=== PATIENT | male | born 1960 | race Asian ===

== ENCOUNTER 2017-06-11 15:26 | Emergency (ER) | payer OTHER ==
[~2017-06-11] VITALS: Ht 170.2 cm; Wt 98.9 kg
[2017-06-11 15:36] VITALS: Ht 170.2 cm; Wt 98.9 kg
[2017-06-11 16:51] LABS: PLATELET COUNT 314 x10^3mcL (130-400); RED CELL DISTRIBUTION WIDTH 13.8 % (11.5-14.5)
[2017-06-11 17:03] LABS: CALCIUM 9.1 mg/dL (8.5-10.1); CARBON DIOXIDE 21.2 mmol/L (21-32); CHLORIDE SERUM 104 mmol/L (98-107); CREATININE SERUM 1.7 mg/dL (0.7-1.3); GFR1 45 mL/min; GLUCOSE SERUM 222 mg/dL (74-106); POTASSIUM SERUM 4.2 mmol/L (3.5-5.1); SODIUM SERUM 139 mmol/L (136-145)
[2017-06-11 17:05] LABS: ALBUMIN 3.8 g/dL (3.4-5.0); ALKALINE PHOSPHATASE 78 U/L (46-116); ALT/SGPT 38 U/L (16-63); AST/SGOT 22 U/L (15-37); BILIRUBIN TOTAL 0.46 mg/dL (0.20-1.00)
[2017-06-11 17:24] LABS: UA SPECIFIC GRAVITY 1.015 (1.005-1.035); microscopic required? YES; urine erythrocyte NEGATIVE (NEGATIVE)
[2017-06-11 17:31] VITALS: BP 110/31
[2017-06-11 17:57] LABS: BAND NEUTROPHIL 2 % (0-10); BASOPHIL 0 % (0-2); MONOCYTE 1 % (0-7); SEGMENTED NEUTROPHILS 81 % (37-75); rbc morphology (normal/abnorm) NORMAL (NORMAL)
== END 2017-06-11 18:14 | disposition left against medical advice (07) ==
LOC: ED 15:26
PROVIDERS: Emergency Medicine
DX: R55 Syncope and collapse (principal); N28.9 Disorder of kidney and ureter, unspecified; D72.829 Elevated white blood cell count, unspecified; I10 Essential (primary) hypertension; E78.00 Pure hypercholesterolemia, unspecified
CPT/HCPCS: 83880; G0480; J7030